=== PATIENT | male | born 1955 | race Caucasian/White ===

== ENCOUNTER 2017-02-14 08:38 | Emergency (ER) | payer OTHER ==
[2017-02-14] MEDS ORDERED: Sodium Chloride 0.9% 10 ML Syringe FLUSH PRN (09:04)
[2017-02-14] MEDS ORDERED: Sodium Chloride 0.9% 2.5 ML Syringe FLUSH PRN (09:04)
[2017-02-14] MEDS ORDERED: Aspirin 81 MG Tab.Chew PO ONE (09:04)
--- NOTE | 2017-02-14 09:10 | EDM.PDOC ---
ED HPI Trauma - General Chief Complaint: Lower Extremity Injury/Pain Stated Complaint: BOTH LEGS SOLLOWEN Time Seen by Provider: 02/14/17 08:55 - History of Present Illness INITIAL COMMENTS - FREE TEXT/NARRATIVE: HISTORY AND PHYSICAL: History of present illness: The patient is a 61-year-old male who gets his medical care at the [facility] and has a history of hypertension and hypercholesterolemia who presents with complaints of lower extremity edema that has been gradually increasing over the last 10 days. The patient has an old injury to his right knee for which his knee gets swollen intermittently and that is not new. He started noticing swelling of his right leg more than usual and then his left leg over the last 10 days. There is no discrete pain in any one area but the leg still very tight. He has no foot or ankle edema. Patient has not had any trauma to his legs. Patient denies any chest pain or shortness of breath but says he had a "chest cold" a week or so ago which seemed to be improved lately, which involved coughing. He is no longer coughing and has no fever chills abdominal pain palpitations nausea vomiting and has had normal urine output. patient denies swelling of any of his upper extremities. The patient denies any history of congestive heart failure or cardiac disease. The patient denies any orthopnea and says he does not waken him overnight short of breath. He denies any neurosensory changes in his legs Review of systems: As per history of present illness and below otherwise all systems reviewed and negative. Past medical history: As per history of present illness and as reviewed below otherwise noncontributory. Surgical history: As per history of present illness and as reviewed below otherwise noncontributory. Social history: No reported history of drug or alcohol abuse. Family history: As per history of present illness and as reviewed below otherwise noncontributory. Physical exam: General: Well-developed mildly overweight male who is nontoxic and vital signs of been noted by me. He moves easily in the ED but on my examination he seemed to get slightly breathless when bending over to take off his socks and change into a gown. HEENT: Atraumatic, normocephalic, pupils reactive, negative for conjunctival pallor or scleral icterus, mucous membranes moist, throat clear, neck supple, nontender, trachea midline. Lungs: Clear to auscultation with some diminished breath sounds in the bases but no wheezing stridor or rales appreciated and no work or breathing,, breath sounds equal bilaterally, chest nontender. Heart: S1S2, regular, negative for clicks, rubs, or JVD. Abdomen: Soft, nondistended, nontender. Negative for masses or hepatosplenomegaly. Negative for costovertebral tenderness. Pelvis: Stable nontender. Genitourinary: Deferred. Rectal: Deferred. Extremities: Atraumatic, negative for cords or calf pain. Neurovascular unremarkable. There is chronic changes of the right knee that's appreciated and there is no specific knee pain or joint effusion on the right. There is bilateral 3+ pitting edema and of the lower extremities with the right leg greater than the left leg and the right leg is usually larger than the left leg. There is a tiny skin changes noted to the anterior tibia area and there are postop scar seen on the right leg. There is no discrete ankle or foot edema appreciated and pulses and neurovascular is intact distally. Neuro: Awake, alert, oriented. Cranial nerves II through XII unremarkable. Cerebellum unremarkable. Motor and sensory unremarkable throughout. Exam nonfocal. Diagnostics: EKG CBC CMP INR troponin BNP UA bilateral venous Dopplers chest x-ray Therapeutics: IV O2 monitor aspirin Lasix I discussed with the patient at length his testing results and have offered him admission for diuresis and further testing. At this point the patient is refusing admission and is aware of my concerns and risks. I will give him a dose of Lasix here and one dose to take tomorrow but have strongly advised him that he needs to get followup when he there are clinic or at the DC clinic. I advised him on reasons to return and that he is always welcome to return for admission if he changes his mind. Patient is awake alert and competent and accepts risks of being discharged and of my concerns and will followup Impression: Lower extremity edema Definitive disposition and diagnosis as appropriate pending reevaluation and review of above. Allergies/ADRs: Allergies No Known Allergies Allergy (Verified 02/14/17 08:46) Home Medications: Ambulatory Orders Hydrochlorothiazide 25 mg PO DAILY 02/14/17 [Confirmed 02/14/17] Omeprazole 20 mg PO BIDAC 02/14/17 [Confirmed 02/14/17] Valsartan 160 mg PO DAILY 02/14/17 [Confirmed 02/14/17] amLODIPine Besylate [Amlodipine Besylate] 10 mg PO DAILY 02/14/17 [Confirmed 04/26] atorvaSTATin [Lipitor] 20 mg PO BEDTIME 02/14/17 [Confirmed 02/14/17] Past Medical History Cardiovascular History: Reports: High cholesterol, Hypertension - Past Surgical History Musculoskeletal Surgical History: Reports: Other (see below) Other Musculoskeletal Surgeries/Procedures:: leg surgery Social & Family History - Family History Family Medical History: Noncontributory - Tobacco Use Smoking Status *Q: Never Smoker - Alcohol Use Days Per Week of Alcohol Use: 4 Number of Drinks Per Day: 3 Total Drinks Per Week: 12 - Recreational Drug Use Recreational Drug Use: No Review of Systems - Review of Systems Review Of Systems: ROS reveals no pertinent complaints other than HPI. Trauma Exam - Physical Exam Exam: See Below (See dictation) Course - Vital Signs Last Recorded V/S: Last Vital Signs Temp 36.8 C 02/14/17 08:50 Pulse 80 02/14/17 08:50 Resp 14 02/14/17 10:38 BP 136/84 02/14/17 10:38 Pulse Ox 95 02/14/17 10:38 - Orders/Labs/Meds Orders: Active Orders 24 hr Category Date Time Status Cardiac Monitoring [RC] . DIRECTED Care 02/14/17 09:03 Active EKG Documentation Completion [RC] STAT Care 02/14/17 09:03 Active Oxygen Therapy, ED [RC] ASDIRECTED Care 02/14/17 09:03 Active Pulse Oximetry [RC] ASDIRECTED Care 02/14/17 09:03 Active Chest 1V Frontal [CR] Stat Exams 02/14/17 09:04 Taken Venous Doppler Lwr Ext Bi [US] Stat Exams 02/14/17 09:04 Taken Furosemide [Lasix] Med 02/14/17 11:32 Once 40 mg IVPUSH NOW ONE Sodium Chloride 0.9% [Saline Flush] Med 02/14/17 09:04 Active 10 ml FLUSH ASDIRECTED PRN Sodium Chloride 0.9% [Saline Flush] Med 02/14/17 09:04 Active 2.5 ml FLUSH ASDIRECTED PRN Saline Lock Insert [OM.PC] Stat Oth 02/14/17 09:03 Ordered Medication Orders Sodium Chloride (Saline Flush) 10 ml FLUSH ASDIRECTED PRN PRN Reason: Keep Vein Open Sodium Chloride (Saline Flush) 2.5 ml FLUSH ASDIRECTED PRN PRN Reason: Keep Vein Open Labs: Laboratory Tests 02/14/17 02/14/17 02/14/17 Range/Units 09:30 09:30 09:30 WBC 8.06 (4.0-11.0) K/uL RBC 4.45 L (4.50-5.90) M/uL Hgb 13.7 (13.0-17.0) g/dL Hct 42.0 (38.0-50.0) % MCV 94.4 (80.0-98.0) fL MCH 30.8 (27.0-32.0) pg MCHC 32.6 (31.0-37.0) g/dL RDW Std Deviation 44.9 (28.0-62.0) fl RDW Coeff of Alexandre 13 (11.0-15.0) % Plt Count 195 (150-400) K/uL MPV 10.00 (7.40-12.00) fL Neut % (Auto) 70.5 (48.0-80.0) % Lymph % (Auto) 20.3 (16.0-40.0) % Haakon % (Auto) 6.6 (0.0-15.0) % Eos % (Auto) 2.2 (0.0-7.0) % Baso % (Auto) 0.4 (0.0-1.5) % Neut # (Auto) 5.7 (1.4-5.7) K/uL Lymph # (Auto) 1.6 (0.6-2.4) K/uL Haakon # (Auto) 0.5 (0.0-0.8) K/uL Eos # (Auto) 0.2 (0.0-0.7) K/uL Baso # (Auto) 0.0 (0.0-0.1) K/uL Nucleated RBC % 0.0 /100WBC Nucleated RBCs # 0 K/uL INR 1.01 (0.86-1.11) Sodium 139 (136-146) mmol/L Potassium 4.0 (3.5-5.1) mmol/L Chloride 102 (98-110) mmol/L Carbon Dioxide 25 (21-31) mmol/L BUN 30 H (6.0-23.0) mg/dL Creatinine 1.0 (0.6-1.5) mg/dL Est Cr Clr Drug Dosing 73.44 mL/min Estimated GFR (MDRD) > 60.0 ml/min Glucose 101 (60-110) mg/dL Calcium 9.7 (8.8-10.8) mg/dL Total Bilirubin 0.5 (0.1-1.5) mg/dL AST 23 (5-40) IU/L ALT 27 (8-54) IU/L Alkaline Phosphatase 72 (40-150) Troponin I (0.0-0.29) NG/ML B-Natriuretic Peptide (<100) PG/ML Total Protein 7.8 (6.0-8.0) g/dL Albumin 4.6 (3.4-4.8) g/dL Globulin 3.2 (2.0-3.5) g/dL Albumin/Globulin Ratio 1.4 (1.3-2.8) Urine Color Urine Appearance Urine pH (5.0-8.0) Ur Specific Lewis (1.001-1.035) Urine Protein (NEGATIVE) mg/dL Urine Glucose (UA) (NEGATIVE) mg/dL Urine Ketones (NEGATIVE) mg/dL Urine Occult Blood (NEGATIVE) Urine Nitrite (NEGATIVE) Urine Bilirubin (NEGATIVE) Urine Urobilinogen (<2.0) EU/dL Ur Leukocyte Esterase (NEGATIVE) Urine RBC (0-2/HPF) Urine WBC (0-5/HPF) Ur Epithelial Cells (NONE-FEW) Urine Bacteria (NEGATIVE) 02/14/17 02/14/17 02/14/17 Range/Units 09:30 09:30 10:47 WBC (4.0-11.0) K/uL RBC (4.50-5.90) M/uL Hgb (13.0-17.0) g/dL Hct (38.0-50.0) % MCV (80.0-98.0) fL MCH (27.0-32.0) pg MCHC (31.0-37.0) g/dL RDW Std Deviation (28.0-62.0) fl RDW Coeff of Alexandre (11.0-15.0) % Plt Count (150-400) K/uL MPV (7.40-12.00) fL Neut % (Auto) (48.0-80.0) % Lymph % (Auto) (16.0-40.0) % Haakon % (Auto) (0.0-15.0) % Eos % (Auto) (0.0-7.0) % Baso % (Auto) (0.0-1.5) % Neut # (Auto) (1.4-5.7) K/uL Lymph # (Auto) (0.6-2.4) K/uL Haakon # (Auto) (0.0-0.8) K/uL Eos # (Auto) (0.0-0.7) K/uL Baso # (Auto) (0.0-0.1) K/uL Nucleated RBC % /100WBC Nucleated RBCs # K/uL INR (0.86-1.11) Sodium (136-146) mmol/L Potassium (3.5-5.1) mmol/L Chloride (98-110) mmol/L Carbon Dioxide (21-31) mmol/L BUN (6.0-23.0) mg/dL Creatinine (0.6-1.5) mg/dL Est Cr Clr Drug Dosing mL/min Estimated GFR (MDRD) ml/min Glucose (60-110) mg/dL Calcium (8.8-10.8) mg/dL Total Bilirubin (0.1-1.5) mg/dL AST (5-40) IU/L ALT (8-54) IU/L Alkaline Phosphatase (40-150) Troponin I < 0.10 (0.0-0.29) NG/ML B-Natriuretic Peptide < 15 (<100) PG/ML Total Protein (6.0-8.0) g/dL Albumin (3.4-4.8) g/dL Globulin (2.0-3.5) g/dL Albumin/Globulin Ratio (1.3-2.8) Urine Color YELLOW Urine Appearance CLEAR Urine pH 7.0 (5.0-8.0) Ur Specific Lewis 1.010 (1.001-1.035) Urine Protein NEGATIVE (NEGATIVE) mg/dL Urine Glucose (UA) NEGATIVE (NEGATIVE) mg/dL Urine Ketones NEGATIVE (NEGATIVE) mg/dL Urine Occult Blood NEGATIVE (NEGATIVE) Urine Nitrite NEGATIVE (NEGATIVE) Urine Bilirubin NEGATIVE (NEGATIVE) Urine Urobilinogen 0.2 (<2.0) EU/dL Ur Leukocyte Esterase NEGATIVE (NEGATIVE) Urine RBC NONE SEEN (0-2/HPF) Urine WBC NONE SEEN (0-5/HPF) Ur Epithelial Cells RARE (NONE-FEW) Urine Bacteria RARE (NEGATIVE) Meds: Medications Generic Name Dose Route Start Last Admin Trade Name Freq PRN Reason Stop Dose Admin Sodium Chloride 10 ml 02/14/17 09:04 Saline Flush FLUSH ASDIRECTED PRN Keep Vein Open Sodium Chloride 2.5 ml 02/14/17 09:04 Saline Flush FLUSH ASDIRECTED PRN Keep Vein Open Discontinued Medications Generic Name Dose Route Start Last Admin Trade Name Freq PRN Reason Stop Dose Admin Aspirin 324 mg 02/14/17 09:04 02/14/17 09:26 Aspirin PO 02/14/17 09:05 324 mg ONETIME ONE Administration Departure - Departure Time of Disposition: 11:34 Disposition: Home, Self-Care 01 Condition: good Clinical Impression: Bilateral lower extremity edema Forms: ED Department Discharge Additional Instructions: The following information is given to patients seen in the emergency department who are being discharged to home. This information is to outline your options for follow-up care. We provide all patients seen in our emergency department with a follow-up referral. The need for follow-up, as well as the timing and circumstances, are variable depending upon the specifics of your emergency department visit. If you don't have a primary care physician on staff, we will provide you with a referral. We always advise you to contact your personal physician following an emergency department visit to inform them of the circumstance of the visit and for follow-up with them and/or the need for any referrals to a consulting specialist. The emergency department will also refer you to a specialist when appropriate. This referral assures that you have the opportunity for followup care with a specialist. All of these measure are taken in an effort to provide you with optimal care, which includes your followup. Under all circumstances we always encourage you to contact your private physician who remains a resource for coordinating your care. When calling for followup care, please make the office aware that this follow-up is from your recent emergency room visit. If for any reason you are refused follow-up, please contact the [facility] emergency department at and ask to speak to the emergency department charge nurse. [facility]- [facility] [address] [place] [phone] Please call tomorrow for followup clinic appointment in next few days either at the DC clinic or with one of our clinic providers. They state one dose of Lasix you have been prescribed tomorrow and return to ER as needed and as discussed. Please watch the salt in her diet and try to reduce the sodium you are eating and drinking. - My Orders Last 24 Hours: My Active Orders 02/14/17 09:03 Cardiac Monitoring [RC] . DIRECTED EKG Documentation Completion [RC] STAT Oxygen Therapy, ED [RC] ASDIRECTED Pulse Oximetry [RC] ASDIRECTED Saline Lock Insert [OM.PC] Stat 02/14/17 09:04 Chest 1V Frontal [CR] Stat Venous Doppler Lwr Ext Bi [US] Stat Sodium Chloride 0.9% [Saline Flush] 10 ml FLUSH ASDIRECTED PRN Sodium Chloride 0.9% [Saline Flush] 2.5 ml FLUSH ASDIRECTED PRN 02/14/17 11:32 Furosemide [Lasix] 40 mg IVPUSH NOW ONE - Assessment/Plan Last 24 Hours: My Active Orders 02/14/17 09:03 Cardiac Monitoring [RC] . DIRECTED EKG Documentation Completion [RC] STAT Oxygen Therapy, ED [RC] ASDIRECTED Pulse Oximetry [RC] ASDIRECTED Saline Lock Insert [OM.PC] Stat 02/14/17 09:04 Chest 1V Frontal [CR] Stat Venous Doppler Lwr Ext Bi [US] Stat Sodium Chloride 0.9% [Saline Flush] 10 ml FLUSH ASDIRECTED PRN Sodium Chloride 0.9% [Saline Flush] 2.5 ml FLUSH ASDIRECTED PRN 02/14/17 11:32 Furosemide [Lasix] 40 mg IVPUSH NOW ONE
[2017-02-14 10:03] LABS: CHLORIDE,CL 102 mmol/L (98-110); SODIUM,NA 139 mmol/L (136-146)
[2017-02-14] MEDS ORDERED: Furosemide 40 MG/4 ML VIAL IVPUSH ONE (11:32)
[2017-02-14 12:31] VITALS: BP 130/72
--- NOTE | 2017-02-16 11:02 | CR ---
EXAM DATE: 02/14/17 PATIENT'S AGE: 61 Patient: INGRID LAMA Facility: [place], [place] Site . Site : 1955 Study: XRay Chest [id number]/7/2017 9:28:04 AM Ordering Physician: John Harrington Final Report: INDICATION: pain/shortness of breath, swollen legs INDICATION: Shortness of breath. TECHNIQUE: Chest 1 view. COMPARISON: None FINDINGS: Cardiovascular and mediastinum: Heart size and vasculature are normal in caliber and appearance. Mediastinum is within normal limits. Lungs and pleural space: Lungs are clear. No sign of infiltrate or mass. No sign of pleural effusion. No pneumothorax. Bones and soft tissues: No significant findings. IMPRESSION: Unremarkable chest. Dictated by Kenny Levy MD @ 02/14/2017 9:35:20 AM Dictated by: Kenny Levy MD @ 02/14/2017 09:35:29 (Electronic Signature) Report Signed by Proxy. [facility]ENTERSus[facility]
--- NOTE | 2017-02-16 11:05 | US ---
EXAM DATE: 02/14/17 PATIENT'S AGE: 61 Patient: INGRID LAMA Facility: [facility], [place], [place] : 1955 Study: US Extremity Venous bilat [id number]/[id number] 10:34:44 AM Ordering Physician: John Harrington Final Report: INDICATION: bilat lower leg pain & swelling, rt greater than left TECHNIQUE: Ultrasound venous duplex lower extremity bilateral. Compression venous exam was performed using witt-scale, color Doppler, and spectral Doppler imaging. COMPARISON: None available. FINDINGS: Sonographic imaging demonstrates the common femoral, deep femoral, superficial femoral, popliteal, and proximal greater saphenous veins to be fully compressible with normal color Doppler blood flow in both lower extremities. The visualized portions of the calf veins are negative for DVT. Incidental note was made of a prominent lymph node with a fatty hilum measuring 1.1 x 3.4 by 2.5 centimeters in the proximal left thigh. IMPRESSION: 1. No sign of deep venous thrombosis. 2. Incidentally noted is a prominent left groin lymph node with a normal appearing fatty hilum. Dictated by Brendon Alvarenga MD @ Feb 14 2017 10:35AM (Electronic Signature) Report Signed by Proxy. LOLA
== END 2017-02-14 11:55 | disposition home or self-care (01) ==
LOC: MW.ED 08:38
DX: R60.0 Localized edema (principal); E78.00 Pure hypercholesterolemia, unspecified; I10 Essential (primary) hypertension; Z79.899 Other long term (current) drug therapy
CPT/HCPCS: 36415; 71010; 80053; 81001; 83880; 84484; 85025; 85610; 93005; 93970; 96374; 99285; A9270; J1940; 99284